=== PATIENT | male | born 1970 | race Two or more races ===

== ENCOUNTER 2016-11-21 07:53 | Inpatient (IN) | payer MEDICAID, OTHER ==
[~2016-11-21] VITALS: Ht 167.6 cm; Wt 67.7 kg
[2016-11-21] MEDS ORDERED: PIPERACILLIN-TAZOB 3.375GM 100 ML IV ONE (08:30)
[2016-11-21 09:17] LABS: Basophils # (auto) 0.1 uL; Basophils % (auto) 1.1 % (0.0-2.0); Eosinophils # (auto) 0.1 uL; Eosinophils % (auto) 1.1 % (0.0-7.0); Hematocrit 26.7 % (41.0-53.0); Hemoglobin 8.6 g/dL (13.5-17.5); Lymphocytes % (auto) 19.5 % (10.0-50.0); Mean Corpuscular Hemoglobin 27.7 pg (28.0-32.0); Mean Corpuscular Hgb Conc. 32.3 g/dL (32.0-36.0); Mean Corpuscular Volume 85.7 fL (80.0-100.0); Mean Platelet Volume 7.9 fL (7.4-10.4); Monocytes # (auto) 0.7 uL; Monocytes % (auto) 13.5 % (0.0-12.0); Neutrophils # (auto) 3.3 uL; Neutrophils % (auto) 64.8 % (37.0-80.0); Platelet Count (auto) 302 10^3/uL (140-450); Red Cell Distribution Width 18.1 % (11.6-16.0); White Blood Cell 5.1 10^3/uL (4.4-10.8)
[2016-11-21 09:32] LABS: INR 1.05 (0.9-1.15); Partial Thromboplastin Time 33.6 sec (22.64-33.71); Prothrombin Time 11.4 sec (9.37-12.3)
[2016-11-21 09:43] LABS: Albumin 2.6 g/dL (3.4-5.0); BUN/Creatinine Ratio 14.2; Bilirubin, Total 0.6 mg/dL (0.2-1.0); Magnesium 2.5 mg/dL (1.6-2.6); Potassium 3.5 mmol/L (3.5-5.1); Total Protein 6.4 g/dL (6.4-8.2)
[2016-11-21] MEDS ORDERED: AZITHROMYCIN 500MG/D5W 250ML 250 ML IV ONE (09:45)
[2016-11-21 09:51] LABS: B-Type Natriuretic Peptide > 5000.00 pg/mL (0-100); Temperature: 23.2 C (20.0-25.0)
[2016-11-21] MEDS ORDERED: ENOXAPARIN SOD 80 MG/0.8ML SYRINGE SC ONE (10:00)
[2016-11-21] MEDS ORDERED: cefTRIAXone 1GM/50ML D5W 50 ML IV ONE (12:15)
[2016-11-21] MEDS ORDERED: ONDANSETRON HCL 4 MG/2 ML VIAL IV PRN (12:30)
[2016-11-21] MEDS ORDERED: MORPHINE SULF INJ 2 MG/ML SYRINGE 1ML IV PRN ×2 (12:30)
[2016-11-21] MEDS ORDERED: DOCUSATE SOD 100 MG CAP PO PRN (12:30)
[2016-11-21] MEDS ORDERED: TEMAZEPAM 15 MG CAP PO PRN (12:30)
[2016-11-21] MEDS ORDERED: NITROGLYCERIN 0.4 MG SL TAB SL PRN (12:30)
[2016-11-21] MEDS ORDERED: DEXTROSE (50%) 50ML SYRG IV PRN (12:30)
[2016-11-21] MEDS ORDERED: cloNIDine HCL 0.1 MG TAB PO PRN (12:30)
[2016-11-21] MEDS ORDERED: ACETAMINOPHEN 325 MG TAB PO PRN (12:30)
[2016-11-21] MEDS ORDERED: HYDROcodone-ACET 5/325MG TAB PO PRN (12:30)
[2016-11-21] MEDS ORDERED: FAMOTIDINE 20 MG TAB PO ONE (12:45)
[2016-11-21] MEDS: SODIUM CHLOR 0.9% PF (SALINE LOCK) 10ML VIAL IV SCH ×2 (13:54→21:41)
[2016-11-21] MEDS: ACCU-CHEK COMFORT CURVE STRIP VI SCH ×2 (17:00→21:42)
[2016-11-21] MEDS: InsuLIN REG 1unit/0.01ml Soln (100units/ml) SC SCH ×2 (17:00→21:41)
[2016-11-21] MEDS: Boost Glucose Control 8 Ounces PO SCH ×2 (18:00→21:41)
[2016-11-21 18:36] VITALS: BP 126/85
[2016-11-21 19:45] VITALS: BP 121/84
[2016-11-21] MEDS: INSULIN DETEMIR(LEVEMIR) 1unit/0.01ml Soln (100units/ml) SC SCH (21:42)
[2016-11-21] MEDS ORDERED: FAMOTIDINE 20 MG TAB PO SCH ×2 (22:00)
[2016-11-21 23:43] VITALS: BP 113/81
[2016-11-22 04:00] VITALS: BP 132/99
[2016-11-22 05:57] LABS: Basophils # (auto) 0.1 uL; Basophils % (auto) 1.6 % (0.0-2.0); DEFINITIVE VIEW TRANSMISSION; Eosinophils # (auto) 0.1 uL; Eosinophils % (auto) 1.4 % (0.0-7.0); Hematocrit 25.2 % (41.0-53.0); Lymphocytes # (auto) 1.8 uL; Lymphocytes % (auto) 28.6 % (10.0-50.0); Mean Corpuscular Hemoglobin 27.2 pg (28.0-32.0); Mean Corpuscular Hgb Conc. 31.8 g/dL (32.0-36.0); Mean Corpuscular Volume 85.5 fL (80.0-100.0); Mean Platelet Volume 8.1 fL (7.4-10.4); Monocytes # (auto) 0.9 uL; Monocytes % (auto) 14.9 % (0.0-12.0); Neutrophils # (auto) 3.4 uL; Neutrophils % (auto) 53.5 % (37.0-80.0); Platelet Count (auto) 291 10^3/uL (140-450); Red Cell Distribution Width 18.5 % (11.6-16.0); White Blood Cell 6.3 10^3/uL (4.4-10.8)
[2016-11-22 06:06] LABS: Albumin 2.4 g/dL (3.4-5.0); BUN/Creatinine Ratio 13.5; Bilirubin, Total 0.5 mg/dL (0.2-1.0); Calcium 7.8 mg/dL (8.5-10.1); Potassium 3.6 mmol/L (3.5-5.1)
[2016-11-22] MEDS: SODIUM CHLOR 0.9% PF (SALINE LOCK) 10ML VIAL IV SCH ×3 (06:15→21:49)
[2016-11-22] MEDS: ACCU-CHEK COMFORT CURVE STRIP VI SCH ×4 (06:15→21:57)
[2016-11-22] MEDS: Boost Glucose Control 8 Ounces PO SCH ×4 (06:15→21:58)
[2016-11-22] MEDS: InsuLIN REG 1unit/0.01ml Soln (100units/ml) SC SCH ×4 (06:15→21:57)
[2016-11-22 08:00] VITALS: BP 131/86
[2016-11-22] MEDS ORDERED: cefTRIAXone 1GM/50ML D5W 50 ML IV SCH (09:00)
[2016-11-22] MEDS ORDERED: MULTIPLE VITAMIN TAB PO SCH (10:00)
[2016-11-22] MEDS ORDERED: AZITHROMYCIN 500MG/D5W 250ML 250 ML IV SCH (10:00)
[2016-11-22] MEDS ORDERED: FAMOTIDINE 20 MG TAB PO SCH (10:00)
[2016-11-22 11:56] VITALS: BP 132/92
[2016-11-22] MEDS: metroNIDAZOLE 500 MG TAB PO SCH ×2 (14:19→21:49)
[2016-11-22 19:26] LABS: Body Fluid Polymorphonuclear 6 %
[2016-11-22 19:51] VITALS: BP 102/61
[2016-11-22 21:43] VITALS: BP 126/86
[2016-11-22] MEDS: INSULIN DETEMIR(LEVEMIR) 1unit/0.01ml Soln (100units/ml) SC SCH (21:58)
[2016-11-22 22:00] VITALS: BP 126/86
[2016-11-22] MEDS ORDERED: NOREPINEPHRINE BITARTRATE 250 ML IV ONE (23:23)
[2016-11-22] MEDS ORDERED: ATROPINE SULF 0.5 MG/5ML SYR IV ONE (23:52)
[2016-11-22] MEDS ORDERED: EPINEPHrine HCL 1 MG/10 ML SYRG IV ONE (23:52)
[2016-11-22] MEDS ORDERED: CALCIUM CHLOR(10%) 100MG/ML 10ML SYRINGE IV ONE (23:52)
[2016-11-22] MEDS ORDERED: SODIUM BICARBONATE 8.4% INJ 50ML SYRINGE IV ONE (23:52)
[2016-11-23 00:09] LABS: Blood 02Sat 98.4 % (96-100); Blood COHb 0.3 % (0.5-1.5); Blood MetHb 0.7 % (0.0-1.5); HHb 1.6 % (0.0-5.0); MODE AMBU BAG; O2Hb 97.4 % (94.0-97.0); PO2 163.3 mmHg (80.0-100.0); PO2(T) 163.3 mmHg (80.0-100.0); Room 0206T; Sample Type Arterial; pH > 7.729 (7.350-7.450)
[2016-11-23 00:12] LABS: INR 1.15 (0.9-1.15); Partial Thromboplastin Time 35.2 sec (22.64-33.71)
[2016-11-23 00:14] LABS: Prothrombin Time 12.6 sec (9.37-12.3)
[2016-11-23 00:17] LABS: Albumin 1.5 g/dL (3.4-5.0); Calcium 6.2 mg/dL (8.5-10.1)
[2016-11-23 00:19] LABS: BUN/Creatinine Ratio 7.7; Bilirubin, Total 2.9 mg/dL (0.2-1.0); Total Protein 4.8 g/dL (6.4-8.2)
[2016-11-23 00:25] LABS: DEFINITIVE VIEW TRANSMISSION; Hematocrit 24.3 % (41.0-53.0); Mean Corpuscular Hemoglobin 27.4 pg (28.0-32.0); Mean Corpuscular Hgb Conc. 29.2 g/dL (32.0-36.0); Mean Corpuscular Volume 93.6 fL (80.0-100.0); Mean Platelet Volume 8.7 fL (7.4-10.4); Platelet Count (auto) 108 10^3/uL (140-450); Red Cell Distribution Width 19.4 % (11.6-16.0); White Blood Cell 8.3 10^3/uL (4.4-10.8)
[2016-11-23 00:31] LABS: Potassium 2.8 mmol/L (3.5-5.1)
[2016-11-23 00:33] LABS: Hemoglobin 7.1 g/dL (13.5-17.5)
[2016-11-23 00:34] LABS: Metamyelocytes % 0; Myelocytes % 0; Promyelocytes % 0; Reactive Lymphocytes 0
[2016-11-23 00:47] LABS: Temperature: 23.5 C (20.0-25.0)
[2016-11-23 01:44] LABS: Platelet Estimate Decreased
[2016-11-24 03:06] LABS: Albumin, Body Fluid 0.8 g/dL (.)
== END 2016-11-22 23:53 | disposition expired | DRG 139 ==
LOC: ER 07:53 → EDUNIT# 07:53 → EDBD 07:53 → OVERFLOW 07:54 → DOU IN ICU 18:12 → TELE-CENTR 11-22 21:35
PROVIDERS: ADMIT Internal Medicine; ATTEND Internal Medicine
PROC: 0W9B30Z Drainage of Left Pleural Cavity with Drainage Device, Percutaneous Approach (ICD-10-PCS; principal; 2016-11-22)
DX: J18.9 Pneumonia, unspecified organism (principal); J96.00 Acute respiratory failure, unspecified whether with hypoxia or hypercapnia; E43 Unspecified severe protein-calorie malnutrition; I13.2 Hypertensive heart and chronic kidney disease with heart failure and with stage 5 chronic kidney disease, or end stage renal disease; A04.7 Enterocolitis due to Clostridium difficile; N18.6 End stage renal disease; D63.1 Anemia in chronic kidney disease; I50.9 Heart failure, unspecified; I73.9 Peripheral vascular disease, unspecified; E11.40 Type 2 diabetes mellitus with diabetic neuropathy, unspecified; E11.21 Type 2 diabetes mellitus with diabetic nephropathy; E11.649 Type 2 diabetes mellitus with hypoglycemia without coma; E11.22 Type 2 diabetes mellitus with diabetic chronic kidney disease; Z78.9 Other specified health status; Z99.2 Dependence on renal dialysis; Z89.511 Acquired absence of right leg below knee; Z79.4 Long term (current) use of insulin; Z82.49 Family history of ischemic heart disease and other diseases of the circulatory system; Z83.3 Family history of diabetes mellitus; Z68.24 Body mass index [BMI] 24.0-24.9, adult
CPT/HCPCS: 36415; 71010; 76604; 76942; 80053; 82962; 83036; 83605; 83735; 83880; 84484; 85007; 85025; 85027; 85379; 85610; 85730; 87040; 87070; 87081; 87205; 87493; 89051; 96365; 96366; 96367; 96368; 96372; J0461; J0696; J2543